=== PATIENT | male | born 1980 | race Caucasian/White ===

== ENCOUNTER 2017-01-18 10:32 | Emergency (ER) | payer SELFPAY ==
[~2017-01-18] VITALS: Ht 182.9 cm; Wt 82.4 kg
[2017-01-18] MEDS ORDERED: KEFLEX500 MG PO (12:11)
[2017-01-18] MEDS ORDERED: VIBRAMYCIN100 MG PO (12:11)
[2017-01-18] MEDS ORDERED: NAPROSYN500 MG PO (12:11)
[2017-01-18] MEDS ORDERED: ULTRAM50 MG PO (12:11)
[2017-01-18] MEDS ORDERED: PERCOCET 5/31 TABLET PO (12:23)
[2017-01-18 12:40] VITALS: BP 152/95
== END 2017-01-18 12:41 | disposition home or self-care (01) ==
LOC: EXP 10:32 → EME 10:32 → EXP 12:41
PROC: 3E0234Z Introduction of Serum, Toxoid and Vaccine into Muscle, Percutaneous Approach (ICD-10-PCS; principal; 2017-01-18)
DX: S91.332A Puncture wound without foreign body, left foot, initial encounter (principal); W26.8XXA Contact with other sharp object(s), not elsewhere classified, initial encounter; Z23 Encounter for immunization
CPT/HCPCS: 73630; 99281; 99284